=== PATIENT | female | born 1975 | race Caucasian/White ===

== ENCOUNTER 2019-12-08 16:22 | Emergency (ER) | payer BC, SELFPAY ==
[2019-12-08 16:27] VITALS: BP 152/95; PULSE 92; RESP 20; TEMP 37; O2SAT 100
--- NOTE | 2019-12-08 16:36 | ED.UPPEXIN ---
HPI - Extremity Injury (Upper) General Chief Complaint: Extremity Injury, Upper Stated Complaint: right arm pain Time Seen by Provider: 12/08/19 16:36 Source: patient and RN notes reviewed History of Present Illness HPI narrative: Patient is a 44-year-old female who presents the urgent care with complaints of right bicep pain. Patient states that she was lifting a twin a pillow top mattress putting on a fitted sheet, and heard a pop to the right bicep. Patient states that she has been trying to rested and it did feel better until she was weed eating this morning. Patient is already on steroids for her ulcerative colitis which she has been taking since October 29. Patient has not taken anything else for her pain. No other acute complaints. No acute distress noted. Patient aware of the plan of care. Related Data Home Medications Medication Instructions Recorded Confirmed escitalopram oxalate 20 mg PO DAILY 12/08/19 12/08/19 lisinopril 10 mg PO DAILY 12/08/19 12/08/19 meloxicam 15 mg PO DAILY 12/08/19 12/08/19 mesalamine 1.5 g PO QAM 12/08/19 12/08/19 pantoprazole 40 mg PO HS 12/08/19 12/08/19 prednisone 40 mg PO DAILY 12/08/19 12/08/19 Allergies Allergy/AdvReac Type Severity Reaction Status Date / Time No Known Allergies Allergy Verified 12/08/19 16:41 Review of Systems Review of Systems: Narrative: CONSTITUTIONAL: Denies fever, chills, or sweats. EYES: Denies visual changes, redness, or discharge. ENT: Denies rhinorrhea, congestion, sore throat, or otalgia. CARDIOVASCULAR: Denies chest pain, palpitations, or edema. RESPIRATORY: Denies cough or dyspnea. GASTROINTESTINAL: Denies abdominal pain, nausea, vomiting, or diarrhea. GENITOURINARY: Denies dysuria or hematuria. SKIN: Denies rash or itching. MUSCULOSKELETAL: Reports of right arm pain NEUROLOGIC: Denies headache, numbness, or weakness. All other systems reviewed are negative, except as documented in HPI. [facility] Past Medical History Medical History (Updated 12/08/19 @ 16:59 by CARLOS MANUEL Toure) Breast cancer screening by mammogram Elevated fasting glucose Obstructive sleep apnea Family History Family History (Updated 09/03/18 @ 09:49 by DOCTOR UNKNOWN) Father Patient's father is , Onset Age: 76 Family history of cardiovascular disease Family history of chronic obstructive pulmonary disease Mother Family history of allergic disorder Family history of chronic obstructive pulmonary disease Family history of lung cancer, Onset Age: 74 Grandparent Family history of cardiovascular disease Acute myocardial infarction, Onset Age: 70 Family history of malignant neoplasm Social History Social History Smoking status: Heavy tobacco smoker Alcohol intake: current Comments At the time of my signature, I reviewed and agree with the nursing past medical, surgical, social, and family history. There is no relevant family history pertinent to the patient complaint. Exam Narrative: Exam Narrative: GENERAL: This is a well-nourished, well-developed patient, in no apparent distress. HEAD: normocephalic, atraumatic. EYES: PERRL. Sclera clear/white. Vision is grossly intact. EARS: External ears normal NOSE: External nose normal with no obvious nasal discharge, nares without redness, no rhinorrhea. THROAT: Mucous membranes moist NECK: Neck supple SKIN: warm, intact with no suspicious lesions or rash, good texture and turgor. NEURO: awake, alert, and oriented to person, place and time. There were no obvious focal neurologic abnormalities. EXTREMITIES: Jesús sign to the right bicep with notable pain on palpation and straightening of the right upper extremity. Positive strong right radial pulse with capillary refill less than 2 seconds. Mild region of ecchymosis noted to the lateral aspect of the right bicep. Range of motion to right upper extremity within normal limits. No obvious bone deformity Course Vital Signs Vital
== END 2019-12-08 17:00 | disposition home or self-care (01) ==
PROVIDERS: Emergency Provider Nurse Practitioner Family; PCP Family Medicine
DX: S46.211A Strain of muscle, fascia and tendon of other parts of biceps, right arm, initial encounter (principal); X50.9XXA Other and unspecified overexertion or strenuous movements or postures, initial encounter; K21.9 Gastro-esophageal reflux disease without esophagitis; M19.90 Unspecified osteoarthritis, unspecified site
CPT/HCPCS: 99212; G0463

== ENCOUNTER 2019-12-17 07:49 | Outpatient (CLI) | payer BC, SELFPAY ==
--- NOTE | ~2019-12-17 | MR_ITS ---
EXAMINATION: MR shoulder RT wo con DATE: 12/17/2019 08:45 INDICATION: Rupture of long head biceps tendon presenting with upper arm pain. TECHNIQUE: Magnetic resonance imaging (MRI) of the right shoulder was performed without intravenous c ontrast. Sequences included axial PD-weighted FS FSE, coronal oblique PD-weighted FS FSE, coronal obl ique T2-weighted FS FSE, sagittal PD-weighted FS FSE, and sagittal T1-weighted SE. COMPARISON: None. FINDINGS: Coracoacromial arch: The acromion undersurface is flat in morphology (type I). The coracoacromial ligament is normal. Mild acromioclavicular osteoarthritis. Rotator cuff: Mild supraspinatus tendinopathy without discrete tear. The infraspinatus, teres minor and subscapular is tendons are normal. Normal rotator cuff muscle bulk and signal. Biceps tendon, glenoid labrum and glenohumeral cartilage: Full-thickness tear of the intra-articular long head biceps tendon which occurs very near to the cristopher ps labral complex. The tear is retracted distally approximately 7 cm below the level of the cephalad aspect of the intertubercular groove with the tear margin fold back upon itself an additional 2 cm in feriorly. There is associated tearing of the superior glenoid labrum. Glenohumeral cartilage is jamee l. Fluid: Physiologic amount of fluid in the glenohumeral joint and biceps tendon sheath. No loose osteochondra l bodies. Small amount of fluid in the subacromial/subdeltoid bursa consistent with mild bursitis. Bones: Normal marrow signal with no edema, fracture or pathologic marrow replacing process. IMPRESSION: 1. Full-thickness tear of the intra-articular long head biceps tendon with distal retraction a signif icant distance below the intertubercular groove. 2. Associated tearing at the superior glenoid labrum. 3. Mild supraspinatus tendinopathy without discrete tear. Reviewed, dictated and finalized at location A. IMPRESSION: 1. Full-thickness tear of the intra-articular long head biceps tendon with dist al retraction a significant distance below the intertubercular groove. 2. Associated tearing at the superior glenoid labrum. 3. Mild supraspinatus tendinopathy without discrete tear.
== END 2019-12-17 07:50 ==
PROVIDERS: PCP Family Medicine; Visit Provider Orthopaedic Surgery
DX: S46.111A Strain of muscle, fascia and tendon of long head of biceps, right arm, initial encounter (principal); X58.XXXA Exposure to other specified factors, initial encounter
CPT/HCPCS: 73221

== ENCOUNTER 2020-08-08 08:36 | Emergency (ER) | payer BC, SELFPAY ==
[2020-08-08 08:40] VITALS: BP 134/98; PULSE 101; RESP 18; TEMP 35.8; O2SAT 100
[2020-08-08] MEDS: KETOROLAC 30 MG/ML VIAL (*BKC) IV PUSH (10:54)
[2020-08-08] MEDS: SODIUM CHLORIDE 0.9% IV 500 ML 999 ML IV CONT (10:54)
[2020-08-08 11:00] LABS: Basophils Percent Auto 0.3 % (0.2-1.2); Eosinophils Absolute Auto 0.2 K/mm3 (0-0.3); Eosinophils Percent Auto 1.2 % (0-4.4); Hematocrit 42.1 % (37.0-47.0); Hemoglobin 14.1 g/dL (12.0-15.0); Immature Granulocyte Absolute 0.05 K/mm3 (0.00-0.031); Immature Granulocyte Percent A 0.4 % (0-0.5); Lymphocytes Absolute Auto 2.81 K/mm3 (0.9-3.2); Lymphocytes Percent Auto 21.7 % (18.3-44.2); Mean Corpuscular HGB Conc 33.5 g/dl (32-36); Mean Corpuscular Hemoglobin 29.9 pg (26-34); Mean Corpuscular Volume 89.4 fl (80-100); Mean Platelet Volume 9.8 fl (7.4-10.4); Monocytes Absolute Auto 0.7 K/mm3 (0.1-0.6); Monocytes Percent Auto 5.4 % (2.6-8.5); Neutrophils Absolute Auto 9.2 K/mm3 (1.3-6.7); Platelet Count Result 263 k/mm3 (150-375); Red Blood Count 4.71 M/mm3 (4.2-5.4); Red Cell Distribution Width 13.9 % (11.5-14.5); White Blood Count 12.9 K/mm3 (4.5-10.0)
[2020-08-08 11:14] LABS: Anion Gap 4 mmol/L (8-16); Blood Urea Nitrogen 15 mg/dL (7-17); CRP 1.3 mg/dL (<1.0); Calcium 9.3 mg/dL (8.4-10.2); Carbon Dioxide 26 mmol/L (22-30); Chloride 108 mmol/L (98-107); Estimated Glomerular Filt Rate > 60; Glucose 97 mg/dL (65-105); Potassium 4.2 mmol/L (3.4-5.0); Sodium 138 mmol/L (137-145)
--- NOTE | 2020-08-08 12:13 | ED.GENADULT ---
HPI - General Adult General Chief complaint: Wound/Laceration Stated complaint: wound to left face Time Seen by Provider: 08/08/20 09:00 Source: patient, family and RN notes reviewed Mode of arrival: ambulatory Limitations: no limitations History of Present Illness HPI narrative: Patient is a 44-year-old female who presents to emergency department for evaluation of wound to the left jehovah's witness region started as a small lesion she attempted to express purulence from it was unable to do so and now it has grown in size patient notes aching pain worse with touch and palpation has tried warm compresses with no improvement denies similar occurrence Related Data Home Medications Medication Instructions Recorded Confirmed escitalopram oxalate 20 mg PO DAILY 12/08/19 12/08/19 meloxicam 15 mg PO DAILY 12/08/19 12/08/19 mesalamine 1.5 g PO QAM 12/08/19 12/08/19 pantoprazole 40 mg PO HS 12/08/19 12/08/19 prednisone 40 mg PO DAILY 12/08/19 12/08/19 Allergies Allergy/AdvReac Type Severity Reaction Status Date / Time No Known Allergies Allergy Verified 08/08/20 08:42 Review of Systems Review of Systems: All systems reviewed & are unremarkable except as noted in HPI and below PMFSH Past Medical History Medical History Breast cancer screening by mammogram Elevated fasting glucose Injury of tendon of long head of right biceps Obstructive sleep apnea Family History Family History (Updated 09/03/18 @ 09:49 by DOCTOR UNKNOWN) Father Patient's father is , Onset Age: 76 Family history of cardiovascular disease Family history of chronic obstructive pulmonary disease Mother Family history of allergic disorder Family history of chronic obstructive pulmonary disease Family history of lung cancer, Onset Age: 74 Grandparent Family history of cardiovascular disease Acute myocardial infarction, Onset Age: 70 Family history of malignant neoplasm Social History Social History Smoking status: Heavy tobacco smoker Alcohol intake: current Exam Narrative: Exam Narrative: GENERAL: Well-appearing, well-nourished, and in no acute distress. HEAD: Normocephalic, atraumatic. EYES: PERRLA and EOMI. ENT: Nares clear, no rhinorrhea or epistaxis. Mucous membranes moist. CHEST: Clear to auscultation. No respiratory distress. No wheezes rales or rhonchi HEART: Regular rate and rhythm. No murmur heard. EXTREMITIES: Normal range of motion. No edema. SKIN: Warm, dry, no rash. Patient with red tender swollen area left temporal region roughly 2 cm in diameter NEURO: No focal deficits. Alert and oriented x3. Neurovascularly intact. Capillary refill less than 2 seconds PSYCH: Normal mood and affect. Course Course Emergency Course: Patient presented with small abscess to the left jehovah's witness region was I&D in the emergency department packing was placed she was given fluids and IV antibiotic in the emergency department noting she will follow with her primary care in the next 2 days was also given a plastics referral and reasons to return and agrees with the plan Vital Signs Vital signs: Vital Signs Temperature 96.4 F L 08/08/20 08:40 Pulse Rate 101 H 08/08/20 08:40 Respiratory Rate 18 08/08/20 08:40 Blood Pressure 134/98 H 08/08/20 08:40 Pulse Oximetry 100 08/08/20 08:40 Temperature 96.4 F L 08/08/20 08:40 Pulse Rate 101 H 08/08/20 08:40 Respiratory Rate 18 08/08/20 08:40 Blood Pressure 134/98 H 08/08/20 08:40 Pulse Oximetry 100 08/08/20 08:40 Procedures Abscess I/D face: Date of Incision: 08/08/20 Time of Incision: 12:16 Side (if applicable): left Local Anesthetic: lidocaine 1% Technique: incised with #11 blade Irrigation: Yes Packing used?: iodoform I&D Results: Pus and Blood Complications: pain Medical Decis
== END 2020-08-08 12:25 | disposition home or self-care (01) ==
PROVIDERS: Emergency Medicine Emergency Medical Services; Emergency Provider Emergency Medicine; PCP Family Medicine
DX: L02.01 Cutaneous abscess of face (principal); G47.33 Obstructive sleep apnea (adult) (pediatric); F17.200 Nicotine dependence, unspecified, uncomplicated
CPT/HCPCS: 10061; 36415; 80048; 85025; 86140; 87070; 87075; 87076; 87147; 87186; 87205; 96365; 96375; 99284; J0690; J1885; J7040

== ENCOUNTER 2020-08-09 19:39 | Emergency (ER) | payer BC, SELFPAY ==
[2020-08-09 19:41] VITALS: BP 155/91; PULSE 78; RESP 16; TEMP 36.6; O2SAT 98
[2020-08-09 22:31] VITALS: BP 149/88; PULSE 80; RESP 18
--- NOTE | 2020-08-09 23:17 | ED.GENADULT ---
HPI - General Adult General Chief complaint: Unspecified Stated complaint: abcess to face Time Seen by Provider: 08/09/20 23:05 Source: patient Mode of arrival: ambulatory Limitations: no limitations History of Present Illness HPI narrative: This is a 44-year-old female that presents the emergency department for worsening area of redness to her face. Reports she was seen here yesterday and had an abscess drained. Reports the redness worsened today which prompted her to be seen. Denies fever or drainage. Related Data Home Medications Medication Instructions Recorded Confirmed meloxicam 15 mg PO DAILY 12/08/19 12/08/19 mesalamine 1.5 g PO QAM 12/08/19 12/08/19 pantoprazole 40 mg PO HS 12/08/19 12/08/19 prednisone 40 mg PO DAILY 12/08/19 12/08/19 Allergies Allergy/AdvReac Type Severity Reaction Status Date / Time No Known Allergies Allergy Verified 08/08/20 08:42 Review of Systems Review of Systems: Narrative: CONSTITUTIONAL: Denies fever SKIN: Reports redness and swelling All systems reviewed & are unremarkable except as noted in HPI and below PMFSH Past Medical History Medical History Breast cancer screening by mammogram Elevated fasting glucose Injury of tendon of long head of right biceps Obstructive sleep apnea Family History Family History (Updated 09/03/18 @ 09:49 by DOCTOR UNKNOWN) Father Patient's father is , Onset Age: 76 Family history of cardiovascular disease Family history of chronic obstructive pulmonary disease Mother Family history of allergic disorder Family history of chronic obstructive pulmonary disease Family history of lung cancer, Onset Age: 74 Grandparent Family history of cardiovascular disease Acute myocardial infarction, Onset Age: 70 Family history of malignant neoplasm Social History Social History Smoking status: Heavy tobacco smoker Alcohol intake: current Exam Narrative: Exam Narrative: GENERAL: Well-appearing, well-nourished, and in no acute distress. HEAD: Normocephalic, atraumatic. Left temporal region with 2 cm area of erythema and edema, no central fluctuance. Packing has fallen out EYES: EOMI. CHEST: Airway patent HEART: Regular rate EXTREMITIES: Normal range of motion. No edema. SKIN: Warm, dry, no rash. NEURO: No focal deficits. Alert and oriented x3. PSYCH: Normal mood and affect Course Vital Signs Vital signs: Vital Signs Temperature 97.8 F 08/09/20 19:41 Pulse Rate 78 08/09/20 19:41 Respiratory Rate 16 08/09/20 19:41 Blood Pressure 155/91 H 08/09/20 19:41 Pulse Oximetry 98 08/09/20 19:41 Temperature 97.8 F 08/09/20 19:41 Pulse Rate 78 08/09/20 19:41 Respiratory Rate 16 08/09/20 19:41 Blood Pressure 155/91 H 08/09/20 19:41 Pulse Oximetry 98 08/09/20 19:41 Medical Decision Making MDM Narrative Medical decision making narrative: Patient presents the emergency department for worsening redness around an abscess that was drained yesterday. She is afebrile and nontoxic-appearing. There is no fluctuance to suggest there is any more fluid to drain. Redness has mildly worsened since yesterday. Spoke with patient about changing oral antibiotic and for her to follow-up with her primary at her scheduled appointment tomorrow. She was given warnings to return to the ER Vital Signs Vital Signs: Vital Signs Temperature 97.8 F 08/09/20 19:41 Pulse Rate 78 08/09/20 19:41 Respiratory Rate 16 08/09/20 19:41 Blood Pressure 155/91 H 08/09/20 19:41 Pulse Oximetry 98 08/09/20 19:41 Temperature 97.8 F 08/09/20 19:41 Pulse Rate 78 08/09/20 19:41 Respiratory Rate 16 08/09/20 19:41 Blood Pressure 155/91 H 08/09/20 19:41 Pulse Oximetry 98 08/09/20 19:41 Critical Care Time Critical Care Time Critical Care Time: No Discharge Plan Discha
[2020-08-09] MEDS: CLINDAMYCIN HCL 150 MG CAP 300 MG PO (23:37)
--- NOTE | 2020-08-09 23:44 | PC.NURSE ---
Pt is unsure/unhappy with PA's eval and ask for a MD. Dr. Billingsley goes in to see pt.
[2020-08-09 23:50] VITALS: BP 142/71; PULSE 76; RESP 18
== END 2020-08-09 23:50 | disposition home or self-care (01) ==
PROVIDERS: Emergency Provider Emergency Medicine; PCP Family Medicine
DX: L03.211 Cellulitis of face (principal); F17.210 Nicotine dependence, cigarettes, uncomplicated
CPT/HCPCS: 99283; A9270

== ENCOUNTER 2020-11-22 15:50 | Emergency (ER) | payer BC, SELFPAY ==
--- NOTE | ~2020-11-22 | XR_ITS ---
XR chest 1V portable DATE: 11/22/2020 23:15 INDICATION: Generalized chest pain, shortness of breath. History of smoking. TECHNIQUE: Portable upright AP chest on 11/22/2020 at 2309 hours COMPARISON: None FINDINGS: There are scattered areas of mild discoid atelectasis or scarring in the lower lung zones. No pulmonary infiltrate, consolidation or pleural effusion, pulmonary vascular congestion or pneumoth orax is evident. Normal heart size. No hilar or mediastinal enlargement. Included skeletal structures appear unremarkable. IMPRESSION: Mild discoid atelectasis or scarring in the lower lung zones Reviewed, dictated and finalized at location A.
--- NOTE | ~2020-11-22 | XR_ITS ---
XR hip LT 2V w AP pelvis DATE: 11/22/2020 17:36 INDICATION: Left hip pain for 2 days. No injury. TECHNIQUE: AP pelvis. AP and lateral views of left hip. COMPARISON: None FINDINGS: There is prominent osteoarthritic spurring of the both hips. No fracture or dislocation of the left hip or avascular necrosis or bone destruction is detected. No pelvic fracture or bone destruction. The pubic symphysis and sacroiliac joints are intact. IMPRESSION: Bilateral hip osteoarthritis Reviewed, dictated and finalized at location A.
--- NOTE | 2020-11-22 15:53 | ECG_ITS ---
Measurements Intervals [place] Rate: 76 P: 17 ID: [id number] QRS: -16 QRSD: 82 T: 55 QT: 364 QTc: 410 Interpretive Statements SINUS RHYTHM NORMAL ECG Electronically Signed On 11-22-2020 16:31:27 CDT by Dwaine Saleh D.O.
[2020-11-22 17:17] VITALS: BP 139/79; PULSE 85; RESP 14; TEMP 36.9; O2SAT 100
[2020-11-22 23:02] VITALS: BP 151/93; PULSE 86; RESP 16; O2SAT 100
--- NOTE | 2020-11-22 23:19 | PC.NURSE ---
Assumed care of pt at this time, discussed POC. XRAY obtained in room. VSS.
[2020-11-22 23:21] VITALS: BP 134/89; PULSE 84; RESP 17; O2SAT 97
--- NOTE | 2020-11-22 23:26 | ED.EXTPRO ---
HPI - Extremity Problem General Chief complaint: Extremity Problem,Nontraumatic Stated complaint: L HIP PAIN, SOB, CHEST TIGHTNESS Time Seen by Provider: 11/22/20 23:03 Source: patient Mode of arrival: ambulatory Limitations: no limitations History of Present Illness HPI Narrative: Patient is a 45-year-old female complaining of left lower back, left buttocks pain radiating to left lower extremity, 8 out of 10, sharp, worse with movement and palpation that started yesterday. Patient states that she has a history of low back pain and hip pain due to arthritis. Patient states that the hip pain was so severe at times that is causing her to have chest pain, currently denies any chest pain or shortness of breath. She denies any injury. Denies any weakness, numbness or incontinence. Denies any urinary symptoms. Related Data Home Medications Medication Instructions Recorded Confirmed meloxicam 15 mg PO DAILY 12/08/19 08/10/20 mesalamine 1.5 g PO QAM 12/08/19 08/10/20 pantoprazole 40 mg PO HS 12/08/19 08/10/20 prednisone 40 mg PO DAILY 12/08/19 08/10/20 Allergies Allergy/AdvReac Type Severity Reaction Status Date / Time No Known Allergies Allergy Verified 08/08/20 08:42 Review of Systems Review of Systems: All systems reviewed & are unremarkable except as noted in HPI and below Constitutional: Constitutional: Denies body ache(s), Denies chills, Denies excessive sweating, Denies fatigue, Denies fever(s), Denies headache(s), Denies lethargy, Denies malaise, Denies weakness and Denies weight loss Eyes: Eyes: Denies blurry vision, Denies change in vision and Denies loss of vision ENT: Denies dizziness, Denies ear discharge, Denies headache(s), Denies lip swelling, Denies epistaxis, Denies nasal congestion, Denies neck pain, Denies throat swelling and Denies tongue swelling Cardiovascular: Cardiovascular: Denies chest pain, Denies chest pain at rest, Denies chest pain with activity, Denies diaphoresis, Denies rapid heart rate, Denies edema, Denies irregular heart rhythm, Denies lightheadedness, Denies palpitations, Denies dyspnea and Denies dyspnea on exertion Respiratory: Respiratory: Denies chest congestion, Denies cough, Denies hemoptysis, Denies dyspnea and Denies dyspnea on exertion Gastrointestinal: Gastrointestinal: Denies abdominal pain, Denies melena, Denies hematochezia, Denies diarrhea, Denies nausea, Denies vomiting and Denies hematemesis Musculoskeletal: Musculoskeletal: Denies abnormal gait, Denies deformity, Denies joint swelling, Denies limited range of motion, Denies neck pain and Denies numbness Neurologic: Denies Abnormal speech present, Denies abnormal gait, Denies confusion, Denies dizziness, Denies headache(s), Denies focal weakness, Denies loss of vision, Denies numbness, Denies Other visual disturbances, Denies Sensory deficit (Neuro) and Denies weakness Psychiatric: Psychiatric: Denies confusion, Denies depression, Denies auditory hallucinations, Denies homicidal ideation and Denies suicidal ideation Endocrine: Endocrine: Denies cold intolerance, Denies excessive sweating, Denies fatigue, Denies heat intolerance and Denies palpitations Hematologic/Lymphatic: Hematologic/Lymphatic: Denies easy bleeding and Denies easy bruising Allergic/Immunologic: Allergic/Immunologic: Denies lip swelling, Denies throat swelling and Denies tongue swelling PMFSH Past Medical History Medical History Breast cancer screening by mammogram Elevated fasting glucose Injury of tendon of long head of right biceps Obstructive sleep apnea Family History Family History Father Patient's father is , Onset Age: 76 Family history of cardiovascular disease Family history of chronic obstructive pulmonary disease Mother Family history of allergic disorder Family history of chronic obstructive pulmonary disease
[2020-11-22 23:39] LABS: Basophils Percent Auto 0.3 % (0.2-1.2); Eosinophils Absolute Auto 0.2 K/mm3 (0-0.3); Eosinophils Percent Auto 1.8 % (0-4.4); Hematocrit 43.4 % (37.0-47.0); Hemoglobin 14.4 g/dL (12.0-15.0); Immature Granulocyte Absolute 0.04 K/mm3 (0.00-0.031); Immature Granulocyte Percent A 0.3 % (0-0.5); Lymphocytes Absolute Auto 4.36 K/mm3 (0.9-3.2); Lymphocytes Percent Auto 37.6 % (18.3-44.2); Mean Corpuscular HGB Conc 33.2 g/dl (32-36); Mean Corpuscular Hemoglobin 29.8 pg (26-34); Mean Corpuscular Volume 89.9 fl (80-100); Mean Platelet Volume 9.8 fl (7.4-10.4); Monocytes Absolute Auto 0.7 K/mm3 (0.1-0.6); Neutrophils Absolute Auto 6.2 K/mm3 (1.3-6.7); Platelet Count Result 289 k/mm3 (150-375); Red Blood Count 4.83 M/mm3 (4.2-5.4); Red Cell Distribution Width 14.1 % (11.5-14.5); White Blood Count 11.6 K/mm3 (4.5-10.0)
[2020-11-22] MEDS: diazePAM INJ (*CRX) 10 MG/2 ML SYRINGE 5 MG IM (23:46)
[2020-11-22] MEDS: KETOROLAC 30 MG/ML VIAL (*BKC) IM (23:46)
[2020-11-22] MEDS: HYDROcodone/acetaminophen (*CRX) 5-325 MG TABLET 1 TAB PO (23:46)
[2020-11-22 23:51] LABS: Anion Gap 7 mmol/L (8-16); Blood Urea Nitrogen 14 mg/dL (7-17); Calcium 8.9 mg/dL (8.4-10.2); Carbon Dioxide 25 mmol/L (22-30); Chloride 107 mmol/L (98-107); Estimated Glomerular Filt Rate > 60; Glucose 100 mg/dL (65-110); Potassium 3.8 mmol/L (3.4-5.0); Sodium 139 mmol/L (137-145)
[2020-11-23 00:02] LABS: Troponin I < 0.012 ng/mL (0.000-0.034)
[2020-11-23 00:35] VITALS: BP 139/92; PULSE 63; RESP 15; O2SAT 96
== END 2020-11-23 00:37 | disposition home or self-care (01) ==
PROVIDERS: Emergency Provider Emergency Medicine; PCP Family Medicine
DX: M54.42 Lumbago with sciatica, left side (principal); R07.89 Other chest pain
CPT/HCPCS: 36415; 71045; 73502; 80048; 84484; 85025; 93005; 96372; 99284; A9270; J1885; J3360

== ENCOUNTER 2022-09-09 13:41 | Emergency (ER) | payer BC, SELFPAY ==
[2022-09-09 13:48] VITALS: BP 178/105; PULSE 92; RESP 20; TEMP 36.5; O2SAT 99
--- NOTE | 2022-09-09 13:56 | ED.URI ---
HPI - URI/Sore Throat General Chief Complaint: Upper Respiratory Infection Stated Complaint: Chest Congestion/Headache History of Present Illness HPI Narrative: PATIENT PRESENTS WITH NASAL CONGESTION AND OCCASIONAL NONPRODUCTIVE COUGH. PATIENT STATES STARTED 3 DAYS AGO WHILE SHE WAS CAMPING. PATIENT HAS TAKEN SUDAFED WHICH DID HELP FOR HER CONGESTION AND COUGH. NO SHORTNESS OF BREATH NO CHEST PAIN NO FEVER NORMALLY HEALTHY INDIVIDUAL. Related Data Allergies Allergy/AdvReac Type Severity Reaction Status Date / Time No Known Allergies Allergy Verified 06/13/21 09:24 Review of Systems Review of Systems: CONSTITUTIONAL: DENIES CHILLS, OR SWEATS. REPORTS FEVER AND GENERALIZED BODY ACHES EYES: DENIES VISUAL CHANGES, REDNESS, OR DISCHARGE. ENT: DENIES OTALGIA. REPORTS NASAL CONGESTION RUNNY NOSE AND SORE THROAT CARDIOVASCULAR: DENIES CHEST PAIN, PALPITATIONS, OR EDEMA. RESPIRATORY: DENIES DYSPNEA. REPORTS OCCASIONAL COUGH GASTROINTESTINAL: DENIES ABDOMINAL PAIN, NAUSEA, VOMITING, OR DIARRHEA. GENITOURINARY: DENIES DYSURIA OR HEMATURIA. SKIN: DENIES RASH OR ITCHING. MUSCULOSKELETAL: DENIES BACK PAIN, JOINT PAIN, OR MYALGIA. REPORTS GENERALIZED BODY ACHES NEUROLOGIC: DENIES HEADACHE, NUMBNESS, OR WEAKNESS. PSYCHIATRIC: DENIES ANXIETY OR DEPRESSION. [facility] Past Medical History Medical History (Updated 09/09/22 @ 14:00 by CARLOS MANUEL Ruiz) Acute non-recurrent maxillary sinusitis BMI 35.0-35.9,adult BMI 36.0-36.9,adult Breast cancer screening by mammogram Elevated fasting glucose Injury of tendon of long head of right biceps Irritable bowel syndrome with diarrhea Obstructive sleep apnea moderate to severe LISA on sleep study 01/08/2019 with patient declining CPAP at 19 cm water pressure Osteoarthritis of hips, bilateral Overactive bladder Tobacco use disorder, continuous 1 pack daily Family History Family History Father Patient's father is , Onset Age: 76 Family history of cardiovascular disease Family history of chronic obstructive pulmonary disease Mother Family history of allergic disorder Family history of chronic obstructive pulmonary disease Family history of lung cancer, Onset Age: 74 Grandparent Family history of cardiovascular disease Acute myocardial infarction, Onset Age: 70 Family history of malignant neoplasm Social History Social History Smoking status: Current every day smoker Alcohol intake: current Gender identity (if verbalized by the patient): Female Comments AT TIME OF SIGNATURE, AGREE WITH NURSING PAST MEDICAL, SURGICAL, SOCIAL AND FAMILY HISTORY. THERE IS NO RELEVANT FAMILY HISTORY PERTINENT TO THE PRESENTING COMPLAINT Exam Narrative: THE PATIENT IS A WELL-DEVELOPED, WELL-NOURISHED IN NO ACUTE DISTRESS. SKIN: SKIN IS WARM AND DRY WITHOUT ERYTHEMA, SWELLING OR EXUDATE. THERE IS GOOD TURGOR. NO TENTING. HEAD: ATRAUMATIC. NORMOCEPHALIC. NO TEMPORAL OR SCALP TENDERNESS. EYES: MOIST AND BRIGHT. SCLERA AND CONJUNCTIVAE NORMAL. NO DISCHARGE. PERRLA. EXTRAOCULAR MOTIONS INTACT. GROSS VISUAL ACUITY INTACT. EARS: PINNA IS NORMAL SHAPE AND CONTOUR. CLEAR EXTERNAL AUDITORY CANALS. TM PEARLY CANELA WITH GOOD CONE OF LIGHT, NO ERYTHEMA OR SUPPURATION. BILATERAL CERUMEN NOTED NO GROSS HEARING DEFICIT. NOSE: PINK, MOIST MUCOSA WITH GOOD AIR MOVEMENT. CLEAR RHINORRHEA WITHOUT NASAL FLARING. SEPTUM MIDLINE. MOUTH: MOIST MUCOUS MEMBRANES. THROAT; MILD ERYTHEMA NOTED TO POSTERIOR OROPHARYNX WITH MODERATE POSTNASAL DRAINAGE. WITHOUT EXUDATE OR ULCERATION.. UVULA MIDLINE. NORMAL MOVEMENT OF SOFT PALATE. NECK: SUPPLE AND NONTENDER WITH FULL RANGE OF MOTION WITHOUT DISCOMFORT. NO MENINGEAL SIGNS. LUNGS: EQUAL AND BILATERAL BREATH SOUNDS WITHOUT WHEEZES, RALES OR RHONCHI. CHEST: THE CHEST WALL IS WITHOUT RETRACTIONS OR USE OF ACCESSORY MUSCLES. HEART: HAS A REGULAR RATE
== END 2022-09-09 14:06 | disposition home or self-care (01) ==
PROVIDERS: Emergency Provider Nurse Practitioner Family; PCP Family Medicine
DX: J32.9 Chronic sinusitis, unspecified (principal); M16.0 Bilateral primary osteoarthritis of hip; F17.200 Nicotine dependence, unspecified, uncomplicated
CPT/HCPCS: 99213; G0463

== ENCOUNTER 2023-05-08 09:37 | Emergency (ER) | payer BC, SELFPAY ==
[2023-05-08 09:47] VITALS: BP 154/93; PULSE 76; RESP 16; TEMP 36.4; O2SAT 98
--- NOTE | 2023-05-08 10:44 | ED.URI ---
HPI - URI/Sore Throat General Chief Complaint: Upper Respiratory Infection Stated Complaint: Sore Throat/Cough/Skin Sore Finger Time Seen by Provider: 05/08/23 10:35 Source: patient and RN notes reviewed Mode of arrival: ambulatory Limitations: no limitations History of Present Illness HPI Narrative: Patient presents today complaining of congestion, headache, chills, sore throat, postnasal drip, sinus pressure since last night. She has tried Flonase and Tylenol cold and flu with some relief. Reports grand children tested positive for flu last week and they have been out her house. Denies fever, cough, shortness of breath. Patient also reports redness, swelling, pain to her left 3rd finger nail area x1 week. She has tried peroxide, antifungal cream, and Prid Salve without relief. She typically wears acrylic nails but has recently removed them. Related Data Allergies Allergy/AdvReac Type Severity Reaction Status Date / Time No Known Allergies Allergy Verified 05/08/23 09:59 Review of Systems Review of Systems: CONSTITUTIONAL: Denies body aches, fever, or sweats.+ chills EYES: Denies visual changes, redness, or discharge. ENT: Denies rhinorrhea, or otalgia.+ congestion, sore throat, postnasal drip, sinus pressure CARDIOVASCULAR: Denies chest pain, palpitations, or edema. RESPIRATORY: Denies cough or dyspnea. GASTROINTESTINAL: Denies abdominal pain, nausea, vomiting, or diarrhea. GENITOURINARY: Denies dysuria or hematuria. SKIN: Denies rash, itching, or wounds. MUSCULOSKELETAL: Denies back pain, joint pain, or myalgia. NEUROLOGIC: Denies numbness, tingling, or weakness.+ headache PSYCH: Denies depression or anxiety. [facility] Past Medical History Medical History Acute non-recurrent maxillary sinusitis BMI 35.0-35.9,adult BMI 36.0-36.9,adult Breast cancer screening by mammogram Elevated fasting glucose Injury of tendon of long head of right biceps Irritable bowel syndrome with diarrhea Obstructive sleep apnea moderate to severe LISA on sleep study 01/08/2019 with patient declining CPAP at 19 cm water pressure Osteoarthritis of hips, bilateral Overactive bladder Tobacco use disorder, continuous 1 pack daily Family History Family History Father Patient's father is , Onset Age: 76 Family history of cardiovascular disease Family history of chronic obstructive pulmonary disease Mother Family history of allergic disorder Family history of chronic obstructive pulmonary disease Family history of lung cancer, Onset Age: 74 Grandparent Family history of cardiovascular disease Acute myocardial infarction, Onset Age: 70 Family history of malignant neoplasm Social History Social History Smoking status: Current every day smoker Alcohol intake: current Gender identity (if verbalized by the patient): Female Comments At time of signature, I have reviewed and agree with nursing past medical, surgical, social and family history unless otherwise noted. Please see nursing chart for further information. There is no relevant family history pertinent to the presenting complaint Exam Narrative: GENERAL: Mildly ill-appearing, well-nourished, and in no acute distress. HEAD: Normocephalic, atraumatic. EYES: EOMI. No redness or drainage. Conjunctivae normal. ENT: Mucous membranes pink and moist. Nares congested. No rhinorrhea. TMs normal bilaterally. Throat normal. Uvula midline. NECK: Normal AROM. Supple. No lymphadenopathy. CHEST: No respiratory distress. Clear to auscultation. HEART: Regular rate and rhythm. No murmur appreciated. EXTREMITIES: Normal range of motion. No edema. SKIN: Warm, dry, no rash. Capillary refill normal. Normal skin turgor. Left 3rd finger: Mild swelling, redness to the nail fold. T[place]
== END 2023-05-08 10:53 | disposition home or self-care (01) ==
PROVIDERS: Emergency Provider Nurse Practitioner; PCP Family Medicine
DX: J06.9 Acute upper respiratory infection, unspecified (principal); L03.012 Cellulitis of left finger; F17.200 Nicotine dependence, unspecified, uncomplicated; Z20.822 Contact with and (suspected) exposure to COVID-19
CPT/HCPCS: 87081; 87426; 87804; 87880; 99213; G0463